=== PATIENT | male | born 1950 | race Caucasian/White ===

== ENCOUNTER 2018-11-13 23:48 | Emergency (ER) | payer OTHER ==
[2018-11-14 00:15] VITALS: TEMP 98.3; BMI 25.0
--- NOTE | 2018-11-14 02:12 | PDOC ---
History of Present Illness - General Chief Complaint: Edema Stated Complaint: SWELLING IN RT FEET Time Seen by Provider: 11/14/18 01:38 History Source: Patient - History of Present Illness Initial Comments: 11/14/18 04:22 Mr. Zendejas is a 68 y/o M with hx of alcohol use disorder in remission p/w 1 week of worsening R ankle tenderness and swelling. He reports wearing a tight pair of shoes and that he cut his R posterior ankle. He reports that the cut did not heal and the area around the cut began to swell and became increasingly tender. He reports difficulty ambulating secondary to pain. He notes having a similar abscess formation under his R arm approx two weeks ago which was drained at home by his daughter. Further, he reports an abscess formation on his L face over the middle of his L cheek three months ago. He denies any history of abscess before that point. He denies any fevers, chills, confusion, palpitations, shortness of breath, chest pain, cough, night sweats, cough, or hemoptysis. He denies any history of diabetes, previous problems with wound healing, and denies any prior alcohol use. He has no known drug allergies and does not take any medications regularly. Timing/Duration: 1 week Severity: moderate Associated Symptoms: denies: chest pain, cough, diaphoresis, fever/chills, headaches, nausea/vomiting, rash, shortness of breath Past History - Travel Traveled outside of the country in the last 30 days: No Close contact w/someone who was outside of country & ill: No - Past Medical History Allergies/Adverse Reactions: Allergies Allergy/AdvReac Type Severity Reaction Status Date / Time No Known Allergies Allergy Verified 11/14/18 00:12 Home Medications: Ambulatory Orders Unobtainable Home Med List 0 dose .ROUTE UTDICT 09/28/13 Clindamycin [Cleocin -] 300 mg PO Q6HPO #28 capsule 11/14/18 Diabetes: No HTN: Yes Hypercholesterolemia: Yes - Suicide/Smoking/Psychosocial Hx Smoking History: Never smoked Have you smoked in the past 12 months: No Information on smoking cessation initiated: No Hx Alcohol Use: No Drug/Substance Use Hx: No Substance Use Type: Alcohol Hx Substance Use Treatment: No *Physical Exam - Vital Signs Last Vital Signs Temp Pulse Resp BP Pulse Ox 98.3 F 62 18 111/83 95 11/13/18 23:56 11/13/18 23:56 11/13/18 23:56 11/13/18 23:56 11/13/18 23:56 ED Treatment Course - LABORATORY CBC & Chemistry Diagram: 11/14/18 03:02 11/14/18 03:02 Medical Decision Making - Medical Decision Making 11/14/18 04:29 68 y/o M with hx prior alcohol use p/w worsening abscess over his posterior ankle after scratching his foot one week ago, with overlying warmth and redness with center area of fluctuance consistent with abscess with overlying cellulitis. Plan for incision and drainage, dosage of IV clindamycin, and discharge home on antibiotics. Plan: CBC CMP Serum alcohol level Incision and drainage Blood culture Wound culture --- Incision and drainage completed without incident. 4mL lidocaine injected over superficial skin, pus excised from 2cm incision. Wound culture obtained at that time. Wound irrigated, cleaned, bacitracin ointment placed over wound which was then covered with band-aid and lightly wrapped in CHAUNCEY bandage. IV clindamycin dose in progress, will dischange home on course of clindamycin. Dispo: Discharge home with PCP follow up *DC/Admit/Observation/Transfer Diagnosis at time of Disposition: Abscess - Discharge Dispostion Disposition: HOME Condition at time of disposition: Good Decision to Admit order: No - Prescriptions Prescriptions: Clindamycin [Cleocin -] 300 mg PO Q6HPO #28 capsule - Referrals - Patient Instructions Printed Discharge Instructions: DI for Incision and Drainage of a Skin Abscess , DI for Skin Abscess Additional Instructions: You were evaluated in the Emergency Department by Dr. Velez, Dr. Aranda, and Dr. Holguin. We conducted a physical exam, medical history, checked bloodwork, and drained an abscess on your right ankle. We cleaned the wound and lightly covered it with a band-aid, and lightly wrapped it with an CHAUNCEY wrap. We also administered one dose of antibiotics through your IV. We are discharging you home on one week of antibiotics, please take them as directed. Follow up with your primary care provider in the next two weeks. Please return if you develop any fevers, confusion, chills, or any other symptoms that become concerning to you. - Post Discharge Activity
[2018-11-14] MEDS ORDERED: LIDOCAINE HCL 2% (20ML MULTI-DOSE VIAL) NR ONE (03:40)
[2018-11-14 03:47] LABS: BASO % 0.9 % (0-2.0); EOS % 2.1 % (0-4.5); HEMOGLOBIN 12.7 GM/dL (11.7-16.9); LYMPH % 13.6 % (8-40); MCH 26.9 pg (25.7-33.7); MCHC 32.7 g/dl (32.0-35.9); MEAN CELL VOLUME 82.4 fl (80-96); MEAN PLT VOLUME 8.6 fl (7.5-11.1); MONO % 9.6 % (3.8-10.2); NEUT % 73.8 % (42.8-82.8); PLATELET COUNT 179 K/MM3 (134-434); RBC 4.73 M/mm3 (4.00-5.60); RDW 17.3 % (11.9-15.9); WHITE BLOOD COUNT 9.3 K/mm3 (4.0-10.0)
[2018-11-14] MEDS ORDERED: CLINDAMYCIN 600MG PREMIX IVPB 600 MG/50 ML BAG IVPB ONE (04:04)
[2018-11-14 04:16] LABS: ALBUMIN 4.5 g/dl (3.4-5.0); BILIRUBIN,TOTAL 0.4 mg/dL (0.2-1); BLOOD UREA NITROGEN 21.9 mg/dL (7-18); CREATININE 0.9 mg/dL (0.55-1.3); TOT PROT 7.2 g/dl (6.4-8.2)
--- NOTE | 2018-11-14 04:38 | PDOC ---
Documentation entered by Sanna Mosley SCRIBE, acting as scribe for Jasmina Holguin MD. Jasmina Holguin MD: This documentation has been prepared by the janibe, Sanna Mosley SCRIBE, under my direction and personally reviewed by me in its entirety. I confirm that the documentation accurately reflects all work, treatment, procedures, and medical decision making performed by me. Attending Attestation - Resident Resident Name: RosieCalvin - ED Attending Attestation I have performed the following: I have examined & evaluated the patient, The case was reviewed & discussed with the resident, I agree w/resident's findings & plan - HPI HPI: 11/14/18 02:44 The patient is a 68 year old male with a past medical history significant for HTN and HLD presents to the emergency department with a swollen wound to the back heel of the right foot. The patient reports about a week ago he sustained a cut to the back of his heel, which progressed into swelling around the area. Denies history of DM. Allergies: NKDA - Physicial Exam PE: 11/14/18 02:58 GENERAL: Awake, alert and oriented. The patient is in no acute distress. ENT: Ears normal, nares patent, oropharynx clear without exudates. Moist mucous membranes. NECK: Normal range of motion, supple, no nuchal rigidity LUNGS: Breath sounds equal, clear to auscultation bilaterally. No wheezes, and no crackles. HEART: Regular rate and rhythm, normal S1 and S2 without murmur, rub or gallop. ABDOMEN: Soft, nontender, normoactive bowel sounds. No guarding, no rebound. No masses palpable. EXTREMITIES: Normal range of motion, edema of the right dorsolateral foot. Pt has right posterior ankle swelling/abscess; I+D performed and wound culture sent NEUROLOGICAL: Answering all questions. Cranial nerves II through XII grossly intact. Normal speech. No focal neurological deficits. SKIN: Warm, Dry, normal turgor, no rashes or lesions noted. - Medical Decision Making 11/14/18 04:07 Pt given a dose of IV abx and he will go home with PO CLinda QID x 7 days Procedures - Incision and Drainage I&D Site: Right: Other (posterior ankle/foot) Anesthesia: 1% Lidocaine Blade Size: 10 Attempts: 1 Plain Packing: No Complications: none Dressing: Yes
[2018-11-14 07:16] VITALS: BP 115/86; PULSE 66
== END 2018-11-14 05:42 | disposition home or self-care (01) ==
LOC: JER 23:48
PROC: 0J9Q0ZZ Drainage of Right Foot Subcutaneous Tissue and Fascia, Open Approach (ICD-10-PCS; principal; 2018-11-13)
PROC: 3E03329 Introduction of Other Anti-infective into Peripheral Vein, Percutaneous Approach (ICD-10-PCS; 2018-11-13)
DX: L02.415 Cutaneous abscess of right lower limb (principal); L03.115 Cellulitis of right lower limb; I10 Essential (primary) hypertension; E78.5 Hyperlipidemia, unspecified
CPT/HCPCS: 10160; 36415; 80053; 80307; 85025; 87040; 87070; 87186; 87205; 96365; 99282-25